=== PATIENT | female | born 1945 | race Two or more races ===

== ENCOUNTER 2023-01-09 18:16 | Emergency (ER) | payer MEDICAID ==
[~2023-01-09] VITALS: Ht 157.5 cm; Wt 70.5 kg
[2023-01-09 18:39] VITALS: BP 155/94; PULSE 90; RESP 16; TEMP 98
[2023-01-09] MEDS ORDERED: ACET-66 PO (20:06)
== END 2023-01-09 21:36 | disposition home or self-care (01) ==
LOC: EMS 18:31
DX: S93.402A Sprain of unspecified ligament of left ankle, initial encounter (principal); X50.1XXA Overexertion from prolonged static or awkward postures, initial encounter; Y93.01 Activity, walking, marching and hiking; Y92.830 Public park as the place of occurrence of the external cause; Y99.8 Other external cause status
CPT/HCPCS: 99283